=== PATIENT | male | born 1990 | race Caucasian/White ===

== ENCOUNTER 2021-11-24 11:21 | Emergency (ER) | payer SELFPAY ==
--- NOTE | 2021-11-24 11:25 | ED.GENADULT ---
HPI - General Adult General Chief complaint: Animal Bite Stated complaint: snake bite left leg Source: patient and EMS Mode of arrival: EMS Limitations: no limitations History of Present Illness HPI narrative: Patient is a 31 y/o male who presents to the ED via EMS with report of a snake bite. 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 He states an elderly lady saw him and called the ambulance. Patient states he did not call the ambulance or need the ambulance, but just wanted a ride to be closer to [place]. Per records, he lives in [place]. Patient does have an abrasion to his left lateral lower leg. He denies any pain or other complaints at this time. He does not want to be evaluated at this time and would like to leave the facility. Review of Systems Review of Systems: CONSTITUTIONAL: Denies fever. GASTROINTESTINAL: Denies nausea, vomiting. SKIN: Reports snakebite / abrasion to left lower leg. MUSCULOSKELETAL: Denies pain. NEUROLOGIC: Denies numbness, tingling, or weakness. All systems reviewed & are unremarkable except as noted in HPI and below PMFSH Past Medical History Medical History (Updated 11/24/21 @ 11:39 by Tg Pope PA-C) No pertinent past medical history Surgical History Surgical History (Updated 11/24/21 @ 11:35 by Tg Pope PA-C) No pertinent past surgical history Social History Social History (Updated 11/24/21 @ 11:35 by Tg Pope PA-C) Alcohol intake: former Substance use: former Exam Narrative: GENERAL: Mildly disheveled appearing. Well-nourished, non-toxic, in no acute distress. HEAD: Normocephalic, atraumatic. EYES: PERRL/EOMI, conjunctivae clear bilaterally. THROAT: Diffuse dental decay. NECK: Supple. No adenopathy, no masses. RESPIRATORY: Airway patent, respirations nonlabored. CARDIOVASCULAR: Regular rate and rhythm without murmurs, rubs, or gallops. Peripheral pulses 2+ and equal bilaterally. MUSCULOSKELETAL: Moves all extremities. Strength/ROM intact without gross deformities. SKIN: Warm, dry, normal color. No rashes. Half dollar sized scabbed abrasion to left lateral lower leg. No surrounding erythema. No purulent drainage. No fluctuance. Dirt diffusely over trunk. NEURO: A&O X3. Speech clear. Cranial nerves II-XII grossly intact. Steady gait. No ataxic movements. PSYCHIATRIC: Mildly manic/pressured speech, normal affect. Normal interaction. Medical Decision Making MDM Narrative Medical decision making narrative: Patient presented to ED via EMS with report of a snakebite. 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 Scabbed abrasion noted to left lateral leg, does not appear consistent with snakebite. Does not appear acutely infectious at this time. Patient states he only took the ambulance to get a ride closer to [place]. He denies any complaints at this time and would like to leave the facility. Refused vitals by nurse, but non-toxic appearing, no acute distress. Patient eloped the facility with minutes of arriving to ED. Medical Records Medical records reviewed: Yes I reviewed the external patient's medical records. Discharge Plan Discharge Clinical Impression: Abrasion of anterior left lower leg Patient Disposition: Elopement After Seen by Prov Condition: Stable Time of Disposition: 11:30
--- NOTE | 2021-11-24 11:25 | PC.NURSE ---
Pt seen ambulating to the exit with steady gait. No distress noted.
== END 2021-11-24 11:37 | disposition left against medical advice (07) ==
LOC: ANHED 11:34
DX: S81.852A Open bite, left lower leg, initial encounter (principal); W59.11XA Bitten by nonvenomous snake, initial encounter
CPT/HCPCS: 99282

== ENCOUNTER 2023-08-26 10:18 | Emergency (ER) | payer MEDICAID, SELFPAY ==
--- NOTE | ~2023-08-26 | CT_ITS ---
EXAMINATION: CT abdomen pelvis w con DATE: 08/26/2023 11:08 INDICATION: Abdominal pain. Rectal bleeding. TECHNIQUE: Computed tomography (CT) of the abdomen and pelvis was performed with 100 CC Omnipaque 350 intravenous contrast. Automated exposure control and iterative reconstruction technique were employe d. Exam dose: 337.07 mGy-cm total exam DLP. COMPARISON: None. FINDINGS: Minimal bilateral lower lobe dependent atelectasis. Normal heart size. No pericardial or pleural effusion. The liver, gallbladder, bile ducts, spleen, pancreas, pancreatic duct, adrenal glands are unremarkabl e. Approximately 6 x 13 mm posterior left renal lower pole cyst or scar. The kidneys are otherwise unrem arkable. No urinary tract calculus or hydroureteronephrosis. The urinary bladder is unremarkable. Normal appendix. There is a prominent amount of fecal material within the colon. No bowel obstruction, bowel wall thic kening, pneumatosis or intraperitoneal free air. Normal caliber of the abdominal aorta. No intraperitoneal or retroperitoneal or pelvic mass lesion or adenopathy or ascites. Normal prostate gland. Included skeletal structures are unremarkable. IMPRESSION: Probable small cyst or scar, left kidney Normal appendix Probable fecal material in the colon so no bowel obstruction or free air Reviewed, dictated and finalized at [facility]. Reviewed, dictated and finalized at [facility].
[2023-08-26 10:21] VITALS: BP 106/69; PULSE 97; RESP 14; TEMP 36.3; O2SAT 97
--- NOTE | 2023-08-26 10:30 | ED.GENADULT ---
HPI - General Adult General Chief complaint: GI Bleed Stated complaint: hemorrhoid bleeding Time Seen by Provider: 08/26/23 10:19 History of Present Illness HPI narrative: 33-year-old male presenting to the emergency department for evaluation for right leg blood per rectum after a bowel movement this morning. Patient is currently at [facility]. Patient reports he has been having some issues with constipation and patient does report a known history of hemorrhoids. Patient states after having a bowel movement this morning he did have some continued bleeding. Patient also does report diffuse abdominal pain. Patient requested HIV testing due to previous history of IV drug use and concerned that people using shared bathroom will be exposed to his HIV. Related Data Allergies Allergy/AdvReac Type Severity Reaction Status Date / Time Penicillins Allergy Unknown Verified 08/26/23 10:32 Review of Systems Review of Systems: All systems reviewed & are unremarkable except as noted in HPI and below PMFSH Past Medical History Medical History (Updated 08/27/23 @ 00:00 by Paulina Arellano) No pertinent past medical history Surgical History Surgical History (Updated 11/24/21 @ 11:35 by Tg Moon PA-C) No pertinent past surgical history Social History Social History (Updated 11/24/21 @ 11:35 by Tg Moon PA-C) Alcohol intake: former Substance use: former Exam Narrative: APPEARANCE: Well appearing, no pain, no distress, well-nourished. HEAD: normocephalic, atraumatic. EYES: PERRLA/EOMI, conjunctivae clear. NOSE: Normal no drainage RESPIRATORY: Airway patent, respirations nonlabored. Clear to auscultation bilaterally, no rales, rhonchi, wheezing. CARDIOVASCULAR: Regular rate and rhythm without murmurs rubs or gallops. ABDOMINAL: Soft, nondistended, normal bowel sounds, diffuse abdominal tenderness MUSCULOSKELETAL: Moves all extremities. Strength/ROM intact, No edema, No calf tenderness. NEURO: Alert. Cranial nerves II through XII intact. Good gait. Good coordination SKIN: Warm, dry. Normal Color Rectal exam: No blood on digital rectal exam, Hemoccult negative Course Vital Signs Vital signs: Vital Signs Temperature 97.4 F L 08/26/23 10:21 Pulse Rate 97 08/26/23 10:21 Respiratory Rate 14 08/26/23 10:21 Blood Pressure 106/69 08/26/23 10:21 Pulse Oximetry 97 08/26/23 10:21 Oxygen Delivery Room Air 08/26/23 10:21 Temperature 97.4 F L 08/26/23 10:21 Pulse Rate 83 08/26/23 12:45 Respiratory Rate 17 08/26/23 12:45 Blood Pressure 104/85 08/26/23 12:45 Pulse Oximetry 99 08/26/23 12:45 Oxygen Delivery Room Air 08/26/23 10:21 Medical Decision Making MDM Narrative Medical decision making narrative: 33-year-old male presenting emergency department for evaluation blood per rectum. Patient had a negative digital rectal exam with no hematochezia. Patient requested hepatitis and HIV testing. patient is afebrile with no leukocytosis and a stable hemoglobin, no acute abnormalities CMP UA was negative and patient was negative for hepatitis-A BC and for HIV. Patient was encouraged of close follow-up with primary care physician. Differential Diagnosis Differential Diagnosis: Hemorrhoids, hematochezia, diverticulitis Vital Signs Vital Signs: Vital Signs Temperature 97.4 F L 08/26/23 10:21 Pulse Rate 97 08/26/23 10:21 Respiratory Rate 14 08/26/23 10:21 Blood Pressure 106/69 08/26/23 10:21 Pulse Oximetry 97 08/26/23 10:21 Oxygen Delivery Room Air 08/26/23 10:21 Temperature 97.4 F L 08/26/23 10:21 Pulse Rate 83 08/26/23 12:45 Respiratory Rate 17 08/26/23 12:45 Blood Pressure 104/85 08/26/23 12:45 Pulse Oximetry 99 08/26/23 12:45 Oxygen Delivery Room Air 08/26/23 10:21 Lab Data 08/26/23 10:34 08/26/23 10:34 Labs: Lab Results 08/26/23 08/26/23 08/26/23 Range/Units 10:
[2023-08-26 10:40] LABS: Basophils Absolute Auto 0.1 K/mm3 (0.0-0.1); Basophils Percent Auto 0.6 % (0.2-1.2); Eosinophils Absolute Auto 0.3 K/mm3 (0-0.3); Hematocrit 37.2 % (42.0-52.0); Hemoglobin 12.1 g/dL (14.0-18.0); Immature Granulocyte Absolute 0.34 K/mm3 (0.00-0.031); Immature Granulocyte Percent A 4.1 % (0-0.5); Lymphocytes Absolute Auto 1.48 K/mm3 (0.9-3.2); Lymphocytes Percent Auto 17.9 % (18.3-44.2); Mean Corpuscular HGB Conc 32.5 g/dl (32-36); Mean Corpuscular Hemoglobin 29.9 pg (26-34); Mean Corpuscular Volume 91.9 fl (80-100); Mean Platelet Volume 10.3 fl (7.4-10.4); Monocytes Absolute Auto 0.9 K/mm3 (0.1-0.6); Monocytes Percent Auto 11.4 % (2.6-8.5); Neutrophils Absolute Auto 5.2 K/mm3 (1.3-6.7); Platelet Count Result 209 k/mm3 (150-375); Red Blood Count 4.05 M/mm3 (4.6-6.20); Red Cell Distribution Width 12.9 % (11.5-14.5); White Blood Count 8.3 K/mm3 (4.5-10.0)
[2023-08-26 10:50] LABS: Alanine Aminotransferase 55 U/L (6-50); Albumin Level 4.2 g/dL (3.5-5.1); Alkaline Phosphatase 72 U/L (38-126); Anion Gap 5 mmol/L (4-12); Aspartate Amino Transferase 48 U/L (17-59); Bilirubin,Total 0.3 mg/dL (0.2-1.3); Blood Urea Nitrogen 12 mg/dL (9-20); Calcium 9.2 mg/dL (8.4-10.2); Carbon Dioxide 28 mmol/L (22-30); Chloride 102 mmol/L (98-107); Estimated CRCL calculation 139 ml/min; Estimated Glomerular Filt Rate > 60; Glucose 98 mg/dL (65-110); Potassium 4.2 mmol/L (3.4-5.0); Sodium 135 mmol/L (137-145)
[2023-08-26 10:51] LABS: Lactic Acid Reflex 1.7 mmol/L (0.7-2.0)
[2023-08-26 10:52] LABS: INR 0.8; Prothrombin Time 11.7 Seconds (11.1-14.7)
[2023-08-26 10:53] LABS: Partial Thromboplastin Time 25.9 Seconds (22.3-36.8)
--- NOTE | 2023-08-26 11:09 | PC.NURSE ---
Report given to Shilpa SANCHEZ, all questions answered
[2023-08-26 11:14] VITALS: BP 114/62; PULSE 97; RESP 17; O2SAT 98
[2023-08-26 11:30] LABS: Appearance Urine Clear (Clear); Bilirubin Urine Negative (Negative); Blood Urine Negative (Negative); Color Urine Yellow (Yellow); Glucose Urine UA Negative (Negative); Ketones Urine Negative (Negative); Leukocyte Esterase Ur Negative LEU/UL (Negative); Nitrate Urine Negative (Negative); Protein Urine Negative (Negative); Urobilinogen Urine 0.2 mg/dL (<2.0)
[2023-08-26 11:31] LABS: Hepatitis B Surface Antigen Negative (Negative)
[2023-08-26 11:31] LABS: Add Urine Microscopic? NO
[2023-08-26 11:37] LABS: HAV RESULT Negative (Negative); Hepatitis B Core IgM Result Negative (Negative)
[2023-08-26 11:49] LABS: Hepatitis C Virus Antibody Negative (Negative)
[2023-08-26 12:21] VITALS: BP 104/85; PULSE 87; RESP 14; O2SAT 98
[2023-08-26 12:43] LABS: HIV 1/2 Ab P24 Ag Result Negative (Negative)
[2023-08-26 12:45] VITALS: BP 104/85; PULSE 83; RESP 17; O2SAT 99
== END 2023-08-26 12:47 | disposition home or self-care (01) ==
PROVIDERS: Emergency Provider Emergency Medicine
DX: K64.9 Unspecified hemorrhoids (principal); Z11.4 Encounter for screening for human immunodeficiency virus [HIV]
CPT/HCPCS: 36415; 74177; 80053; 80074; 81003; 83605; 85025; 85610; 85730; 86703; 87536; 99284; G0432; Q9967